=== PATIENT | female | born 1990 | race Caucasian/White ===

== ENCOUNTER 2019-12-16 17:40 | Emergency (ER) | payer OTHER ==
[2019-12-16] MEDS ORDERED: Lidocaine 2% VISCOUS* 15 ML UDC PO ONE (18:24)
[2019-12-16] MEDS ORDERED: Benzonatate CAP* 100 MG PO ONE (18:24)
[2019-12-16] MEDS ORDERED: Acetaminophen TAB* 325 MG PO ONE (18:25)
--- NOTE | 2019-12-16 18:27 | ED ---
Respiratory - HPI Summary HPI Summary: Patient complains of productive cough, chest pain with cough, sore throat, nasal congestion, headache, body aches 2 days. Denies fever, ear pain, neck stiffness, and/V/D, abdominal pain, change in urine, change in BM. Tylenol last taken at 6 AM today. Medical history is DM, asthma, bariatric surgery on . - History of Current Complaint Chief Complaint: EDFluSymptoms Stated Complaint: COUGH PER PT Time Seen by Provider: 12/16/19 17:41 Hx Obtained From: Patient Onset/Duration: Gradual Onset, Lasting Days Initial Severity: Moderate Current Severity: Moderate Pain Intensity: 5 Character: Cough (Productive) Sputum Amount: Moderate Sputum Color: Green Aggravating Factor(s): Nothing Alleviating Factor(s): Nothing Associated Signs and Symptoms: Chest Pain with Cough - Allergy/Home Medications Allergies/Adverse Reactions: Allergies Allergy/AdvReac Type Severity Reaction Status Date / Time ibuprofen Allergy Anaphylatic Verified 12/16/19 17:50 Shock lavender (Lavandula Allergy Hives Verified 12/16/19 17:50 angustifolia) ' control that starts Allergy See Comment Uncoded 12/16/19 17:50 with R' Home Medications: Home Medications Benzonatate CAP* [Tessalon 100 MG CAP*] 200 mg PO TID 6 Days #40 cap 12/16/19 [ Rx] Cyanocobalamin (Vitamin B-12) [Vitamin B-12] 1,000 mcg PO DAILY 12/16/19 [ History Confirmed 12/16/19] Fluoxetine HCl 20 mg PO DAILY 12/16/19 [History Confirmed 12/16/19] Lisinopril [Zestril] 10 mg PO DAILY 12/16/19 [History Confirmed 12/16/19] Multivitamin [Multivitamins] 1 cap PO DAILY 12/16/19 [History Confirmed 12/16/19 ] Pantoprazole Sodium 40 mg PO DAILY 12/16/19 [History Confirmed 12/16/19] PMH/Surg Hx/FS Hx/Imm Hx Endocrine/Hematology History: Denies: Hx Anticoagulant Therapy, Hx Diabetes, Hx Thyroid Disease Cardiovascular History: Denies: Hx Hypertension, Hx Pacemaker/ICD Respiratory History: Reports: Hx Asthma Denies: Hx Chronic Obstructive Pulmonary Disease (COPD) History: Denies: Hx Renal Disease Sensory History: Denies: Hx Eye Prosthesis Opthamlomology History: Denies: Hx Legally Blind EENT History: Denies: Hx Deafness Neurological History: Denies: Hx Dementia, Hx Seizures Psychiatric History: Denies: Hx Substance Abuse Infectious Disease History: No Infectious Disease History: Denies: Hx Hepatitis, Hx Human Immunodeficiency Virus (HIV), Traveled Outside the [place] in Last 30 Days - Family History Known Family History: Positive: Non-Contributory - Social History Alcohol Use: None Alcohol Amount: 'recovering alcoholic' Substance Use Type: Reports: None Smoking Status (MU): Former Smoker Review of Systems Constitutional: Negative Eyes: Negative Positive: Sore Throat, Nasal Discharge Cardiovascular: Negative Positive: Cough Gastrointestinal: Negative Genitourinary: Negative Positive: Myalgia Skin: Negative Positive: Headache Psychological: Normal All Other Systems Reviewed And Are Negative: Yes Physical Exam Triage Information Reviewed: Yes Vital Signs On Initial Exam: Initial Vitals Temp Pulse Resp BP Pulse Ox 99.1 F 78 16 120/73 97 12/16/19 17:47 12/16/19 17:47 12/16/19 17:47 12/16/19 17:47 12/16/19 17:47 Vital Signs Reviewed: Yes Appearance: Positive: Well-Appearing Skin: Positive: Warm Head/Face: Positive: Normal Head/Face Inspection Eyes: Positive: Normal ENT: Positive: Normal ENT inspection Neck: Positive: Supple Respiratory/Lung Sounds: Positive: Clear to Auscultation Cardiovascular: Positive: Normal Abdomen Description: Positive: Nontender Musculoskeletal: Positive: Normal Neurological: Positive: Normal Psychiatric: Positive: Normal AVPU Assessment: Alert - [place] Coma Scale Best Eye Response: 4 - Spontaneous Best Motor Response: 6 - Obeys Commands Best Verbal Response: 5 - Oriented Coma Scale Total: 15 Procedures - Sedation Patient Received Moderate/Deep Sedation with Procedure: No Diagnostics - Vital Signs Vital Signs Temp Pulse Resp BP Pulse Ox 12/16/19 17:47 99.1 F 78 16 120/73 97 - Laboratory Lab Statement: Any lab studies that have been ordered have been reviewed, and results considered in the medical decision making process. Disposition - Course Course Of Treatment: Patient complains of productive cough, chest pain with cough, sore throat, nasal congestion, headache, body aches 2 days. Denies fever, ear pain, neck stiffness, and/V/D, abdominal pain, change in urine, change in BM. Tylenol last taken at 6 AM today. Medical history is DM, asthma , bariatric surgery on 12/04/19. Vital signs within normal limits. COVID 19 pending. Flu B positive. Strep negative. - Diagnoses Provider Diagnoses: Flu Discharge ED - Sign-Out/Discharge Documenting (check all that apply): Patient Departure - Discharge Plan Condition: Stable Disposition: HOME Prescriptions: Benzonatate CAP* [Tessalon 100 MG CAP*] 200 mg PO TID 6 Days #40 cap Patient Education Materials: Influenza (ED) Forms: COVID-19 Tested & Isolation Referrals: Gayla Arce MD [Primary Care Provider] - Additional Instructions: Please follow self quarantine instructions. Return to the ED for any new or worsening symptoms. - Billing Disposition and Condition Condition: STABLE Disposition: Home - Attestation Statements Provider Attestation: I was available for consultation for this patient. I did not evaluate the patient or participate in any medical decision making or disposition decisions unless I am specifically named in the chart as having consulted on the patient. If I have consulted on the patient, please see my own ED note on the patient encounter. Sonja Kaplan MD
[2019-12-16 19:12] LABS: Influenza B Molecular POSITIVE (Negative); Rapid Strep Molecular Negative (Negative)
[2019-12-16 19:42] VITALS: BP 106/63
== END 2019-12-16 19:40 | disposition home or self-care (01) ==
LOC: ED 17:40
DX: J11.1 Influenza due to unidentified influenza virus with other respiratory manifestations (principal); J45.909 Unspecified asthma, uncomplicated; Z87.891 Personal history of nicotine dependence; Z79.899 Other long term (current) drug therapy; Z88.8 Allergy status to other drugs, medicaments and biological substances
CPT/HCPCS: 87651; 99283; A9270-GY; U0002